=== PATIENT | male | born 1980 | race Caucasian/White ===

== ENCOUNTER → 2021-10-21 00:35 | Outpatient (CLI) | payer OTHER, SELFPAY ==
[2021-10-21 20:10] LABS: SARS-CoV-2 RNA PCR Negative
== END ==
PROVIDERS: PCP Internal Medicine; Visit Provider Nurse Practitioner
DX: Z20.828 Contact with and (suspected) exposure to other viral communicable diseases (principal)
CPT/HCPCS: C9803; U0003; U0005

== ENCOUNTER 2022-01-30 00:15 | Day surgery (SDC) | payer OTHER, SELFPAY ==
[2022-01-18 14:07] VITALS: BMI 27.4
[2022-01-30] VITALS (10 sets, daily range): BP systolic 97–121; BP diastolic 62–83; PULSE 56–77; RESP 13–20; TEMP 37.2; O2SAT 95–100; BMI 26.4
[2022-01-30] MEDS: LACTATED RINGERS 1,000 ML 150 ML IV CONT ×2 (09:56→11:08)
[2022-01-30 10:10] LABS: Glucose Point of Care 127 mg/dl (65-105)
--- NOTE | 2022-01-30 10:41 | WPDANESEPPF ---
Anes - Initial Pre Proc Eval Procedure: Operation Date: 01/30/22 11:00 Proposed Procedures p Screening Colonoscopy - Solis Dietrich MD Date/Time: 01/30/22 10:41 Surgeon: Solis Dietrich MD Pre Op Diagnosis: hx of colon polyps Patient Data Age: 41 Gender: M Height: 1.93 m Weight: 98.7 kg Last Vital Signs Temp 37.2 C 01/30/22 09:38 Pulse 56 L 01/30/22 10:20 Resp 20 01/30/22 10:20 BP 101/68 01/30/22 10:20 Pulse Ox 95 01/30/22 10:20 Allergies Allergy/AdvReac Type Severity Reaction Status Date / Time codeine Allergy Mild Childhood Verified 01/30/22 09:47 allergy hydrocodone Allergy Mild Constipated Verified 01/30/22 09:47 pseudoephedrine Allergy Mild Unknown Verified 01/30/22 09:47 triprolidine Allergy Mild Unknown Verified 01/30/22 09:47 azithromycin Allergy Unknown Vomiting Verified 01/30/22 09:47 hydroxyzine AdvReac Mild disoriented Verified 01/30/22 09:47 Home Medications Medication Instructions Recorded Confirmed Type hydrochlorothiazide 12.5 mg tablet 12.5 mg PO DAILY #90 tablet 01/17/22 01/30/22 Rx losartan 100 mg tablet 100 mg PO DAILY #90 tablet 01/17/22 01/30/22 Rx Laboratory Tests 01/30/22 10:06 POC Capillary Glucose 127 mg/dl H mg/dl (65-105) Patient hx anesthesia problems: none Family hx anesthesia problems: none Results Review: All pre-operative results and documents have been reviewed as part of the pre-operative evaluation. [facility] Past Medical History Medical History Allergies Anxiety Depression Hypertension Prediabetes Surgical defect of lip 1983 Surgical History Surgical History H/O hernia repair 1984 H/O vasectomy 2018 History of appendectomy 2009 S/P surgery on nasal septum 2012 Family History Family History Father Hypertension Malignant neoplasm of prostate Mother Family history of hypothyroidism Hypotension Allergies Social History Social History Smoking status: Never smoker Alcohol intake: current Drinks per week: 3 Alcohol use details: Pt drinks socially. Substance use: never Substance use type: does not use Living arrangements: with family Spiritual care concerns: No Anes - Eval Final PreProcedure Day of Procedure 01/30/22 10:41 Patient weight: overweight Heart: regular rate and rhythm Lungs: clear to auscultation Airway: Mallampati scale class II Neurological: alert and oriented Last oral intake: >/= 8 hours ASA classification: II Emergent: no Anesthetic plan: proceed Anesthesia type and monitoring: general GIVS and standard monitoring Results Review: All pre-operative results and documents have been reviewed as part of the pre-operative evaluation. Informed Consent: The patient's anesthetic plan and its attendant risks and benefits were discussed with the patient/family/POA. Questions were solicited and answers provided to the satisfaction of the patient/family/POA.
--- NOTE | 2022-01-30 10:47 | SUR.PREOP ---
0955- Started pt's IV 0958- Pt pushed call light. Stated he wasn't feeling well then passed out for a few seconds. Pt was pale and diaphoretic. IV bolus started. Pt place in trendelenburg. 1000- BP 110-71, HR 56, O2Sat 100% RA. Pt states he takes BP meds, but did not take any this morning. states that the pt took his BP prior to starting the prep yesterday and said it was 120's/80s. Pt's BP upon arrival today was 121/76, HR 77, O2Sat 99% RA. 1008- BP 102/66, HR 58 1020- BP 101/68, HR 56
--- NOTE | 2022-01-30 11:08 | PM.HPGS ---
History of Present Illness History of Present Illness Consent: Risks, benefits, and alternatives have been discussed and questions answered. Patient agrees to proceed with procedure. Chief complaint: hx of colon polyps Narrative: Glenroy Ledesma is a 41 year old male here for screening colonoscopy, had one about 20 years ago and thinks that had polyp. Review of Systems Constitutional: Constitutional: Denies headache(s) and Denies weakness Eyes: Eyes: Denies blurry vision ENT: Reports Normal hearing present, Denies headache(s) and Denies neck pain Cardiovascular: Cardiovascular: Denies chest pain and Denies dyspnea Respiratory: Respiratory: Denies dyspnea Gastrointestinal: Gastrointestinal: Reports no additional gastrointestinal complaints Genitourinary: Genitourinary: Denies dysuria Musculoskeletal: Musculoskeletal: Denies neck pain Integumentary/Breasts: Skin/Breast: Denies dry skin Neurologic: Reports Normal hearing present, Denies headache(s) and Denies weakness Psychiatric: Psychiatric: Denies anxiety Endocrine: Endocrine: Denies change in body appearance Hematologic/Lymphatic: Hematologic/Lymphatic: Denies easy bleeding Allergic/Immunologic: Allergic/Immunologic: Denies urticaria PMFSH Past Medical History Medical History (Updated 01/30/22 @ 11:08 by Solis Dietrich MD) Allergies Anxiety Colon cancer screening Depression Hypertension Prediabetes Surgical defect of lip 1983 Surgical History Surgical History H/O hernia repair 1984 H/O vasectomy 2018 History of appendectomy 2009 S/P surgery on nasal septum 2012 Family History Family History Father Hypertension Malignant neoplasm of prostate Mother Family history of hypothyroidism Hypotension Allergies Social History Social History Smoking status: Never smoker Alcohol intake: current Drinks per week: 3 Alcohol use details: Pt drinks socially. Substance use: never Substance use type: does not use Living arrangements: with family Spiritual care concerns: No Meds Home Medications and Allergies Home Medications Medication Instructions Recorded Confirmed Type hydrochlorothiazide 12.5 mg tablet 12.5 mg PO DAILY #90 tablet 01/17/22 01/30/22 Rx losartan 100 mg tablet 100 mg PO DAILY #90 tablet 01/17/22 01/30/22 Rx Allergies Allergy/AdvReac Type Severity Reaction Status Date / Time codeine Allergy Mild Childhood Verified 01/30/22 09:47 allergy hydrocodone Allergy Mild Constipated Verified 01/30/22 09:47 pseudoephedrine Allergy Mild Unknown Verified 01/30/22 09:47 triprolidine Allergy Mild Unknown Verified 01/30/22 09:47 azithromycin Allergy Unknown Vomiting Verified 01/30/22 09:47 hydroxyzine AdvReac Mild disoriented Verified 01/30/22 09:47 Vital Signs Vital Signs - 24 hr 01/30/22 09:38 01/30/22 10:00 01/30/22 10:08 Temperature 98.9 F Pulse Rate 77 56 L 58 L Respiratory Rate 18 Blood Pressure 121/76 110/71 102/66 Pulse Oximetry 99 100 100 01/30/22 10:20 Temperature Pulse Rate 56 L Respiratory Rate 20 Blood Pressure 101/68 Pulse Oximetry 95 Exam Const: General: comfortable and no acute distress HENMT: General nose exam: Normal nares present Eyes: General: appearance normal, both eyes and all related structures Neck: Neck: no JVD Resp: Auscultation: clear to auscultation bilaterally Cardio: Rate: regular rate Rhythm: regular rhythm GI: Inspection: non-distended GI Palp: Yes Soft to palpation Skin: General skin exam: normal color Neuro: General: gait normal Speech: normal speech Extrem: General: normal to inspection Psych: Mental Status: mental status grossly normal Assessment and Plan Assessment and plan (1) Colon cancer screening: Code(s):
== END 2022-01-30 12:00 | disposition home or self-care (01) ==
PROVIDERS: PCP Internal Medicine; Visit Provider Internal Medicine Gastroenterology
PROC: 0DJD8ZZ Inspection of Lower Intestinal Tract, Via Natural or Artificial Opening Endoscopic (ICD-10-PCS; CPT 45378; principal; 2022-01-30 11:00)
DX: Z12.11 Encounter for screening for malignant neoplasm of colon (principal); K64.8 Other hemorrhoids; F41.8 Other specified anxiety disorders; I10 Essential (primary) hypertension; R73.03 Prediabetes
CPT/HCPCS: 45378; 82948; J2704; J7120

== ENCOUNTER → 2022-03-26 13:48 | Outpatient (CLI) | payer OTHER, SELFPAY ==
--- NOTE | ~2022-03-26 | US_ITS ---
EXAMINATION: US soft tissue UE LT DATE: 03/26/2022 14:11 INDICATION: Left hand second digit mass. TECHNIQUE: Multiple grayscale and Doppler ultrasound images of the left hand second digit were obtain ed. COMPARISON: None FINDINGS: In the left hand second digit, there is a 5 mm hypoechoic mass abutting the flexor tendon s michelle at the level of the proximal phalanx. IMPRESSION: 1. 5 mm hypoechoic mass abutting the flexor tendon sheath at the level of the second proximal phalanx . The differential diagnosis includes ganglion cyst and tenosynovial giant cell tumor. Reviewed, dictated and finalized at location B. IMPRESSION: 1. 5 mm hypoechoic mass abutting the flexor tendon sheath at the level of the s econd proximal phalanx. The differential diagnosis includes ganglion cyst and t enosynovial giant cell tumor.
== END ==
PROVIDERS: PCP Internal Medicine; Visit Provider Nurse Practitioner
DX: R22.32 Localized swelling, mass and lump, left upper limb (principal)
CPT/HCPCS: 76882

== ENCOUNTER → 2022-06-22 11:25 | Outpatient (CLI) | payer OTHER, SELFPAY ==
--- NOTE | ~2022-06-22 | XR_ITS ---
XR shoulder RT min 2V DATE: 06/22/2022 11:35 INDICATION: Right shoulder pain TECHNIQUE: 4 views COMPARISON: None FINDINGS: Normal alignment at the acromioclavicular and glenohumeral joints. No fracture or dislocati on, periosteal reaction or bone destruction or abnormal soft tissue calcification. IMPRESSION: Negative right shoulder Reviewed, dictated and finalized at location B. IMPRESSION: Negative right shoulder
== END ==
PROVIDERS: PCP Internal Medicine; Visit Provider Nurse Practitioner
DX: M25.511 Pain in right shoulder (principal)
CPT/HCPCS: 73030

== ENCOUNTER 2022-07-11 09:30 | Outpatient (RCR) | payer OTHER, SELFPAY ==
--- NOTE | 2022-06-06 16:23 | PTOPEVAL ---
PHYSICAL THERAPY INITIAL EVALUATION. Thank you for referring Glenroy Ledesma to [facility].? The patient is scheduled to be seen for therapy? 1x/week for 4 weeks. Please review, sign, date and return this plan of care JANE. I agree with and certify that the following plan of care is medically necessary. Referring Physician Date Attending Provider: Amy French NP *PT Outpatient Evaluation Start: 06/06/22 Evaluation Information Diagnosis R shoulder pain Onset 2-3 months Subjective Information Pt reports R shoulder pain Query Text:As Reported By Patient/ that stated a few months ago Family while playing whiffle ball, he threw the ball and instantly felt a searing pain from his shoulder down to his forearm. This searing pain happens any time he throws a ball and the pain last for a while after. He states he also feels this pain mildly when reaching overhead or far out in front of him but the pain stops as soon as he stops. He states he cannot sleep on his R side. 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 Hand Dominance Right Pain Assessment Right Shoulder(s) Reported Pain Level 0 Pain Description Burning,Dull,With Movement Pain Frequency Acute,Intermittent Lowest Pain Intensity 0 Greatest Pain Intensity 7 Upper Extremity Range of Motion Right Shoulder Flexion - Active 155 Shoulder Abduction - Active 160 Shoulder Medial Rotation - Active L5 Shoulder Lateral Rotation - Active T4 Scapular/Shoulder Range of Motion L shoulder active flexion 155 Comments L shoulder active [id number] L shoulder functional medial/ lateral rotation: T6, T4 Upper Extremity Muscle Strength Testing General Upper Extremity Strength Gross Upper Extremity Strength Comments L shoulder 5/5 throughout Scapular/Shoulder Right Scapular Protraction - Serratus 4+ Good + Shoulder Flexion Strength 4+ Good + Shoulder Abduction Strength 4 Good Shoulder Medial Rotation Strength 4+ Good + Shoulder Lateral Rotation Strength 4+ Good + Posture Scapula Posture (R) Protracted Palpation Assessment Palpation tender along lateral biceps Special Tests-Upper Extremity Empty Can (supraspinatus) Test Negative Left,Negative Right Drop Arm Test Negative Left,Negative Right Speed's Test Negative Left,Negative Right Lift Off Test
--- NOTE | 2022-07-06 15:23 | PTOPEVAL ---
PHYSICAL THERAPY PROGRESS REPORT. Thank you for referring Glenroy Ledesma to [facility].? The patient is scheduled to be seen for therapy? 1x/week for 4 weeks. Please review, sign, date and return this plan of care JANE. I agree with and certify that the following plan of care is medically necessary. Referring Physician Date Attending Provider: Amy French NP *PT Outpatient Evaluation Start: 06/06/22 Evaluation Information Diagnosis R shoulder pain Onset 2-3 months Subjective Information Pt states things have gotten a Query Text:As Reported By Patient/ little better but he is still Family having some difficulty. He states he can reach over his head, but when reaching out to the side he gets a pinching feeling intermittently. He states he has not attempted to play catch yet. He can sleep on his R side but he states it doesn't feel normal . He reports reaching behind his back every time. Pain Assessment Self Report Pain Assessment Right Shoulder(s) Reported Pain Level 1 Lowest Pain Intensity 0 Greatest Pain Intensity 5 Pain Aggravating Factors Lifting Upper Extremity Range of Motion Scapular/ Shoulder Range of Motion Right Shoulder Flexion - Active 155 Shoulder Abduction - Active 170 Shoulder Medial Rotation - Active L5 Shoulder Lateral Rotation - Active T4 Scapular/Shoulder Range of Motion R active abduction to 170 with Comments quicker motion, when motion is slow and controlled pt stops at 115 d/t pain L shoulder active flexion 155 L shoulder active abduction 180 L shoulder functional medial/ lateral rotation: T6, T4 Upper Extremity Muscle Strength Testing Gross Upper Extremity Strength Comments L shoulder 5/5 throughout Scapular/Shoulder Right Scapular Protraction - Serratus 5 Normal Shoulder Flexion Strength 5 Normal Shoulder Abduction Strength 5 Normal Shoulder Medial Rotation Strength 5 Normal Shoulder Lateral Rotation Strength 5 Normal Posture Scapula Posture (R) Protracted Palpation Assessment Palpation Palpation tender along insertion of deltoid Special Tests-Upper Extremity Empty Can (supraspinatus) Test Negative Left,Negative Right Painful Arc Positive Right Drop Arm Test Negative Le
--- NOTE | 2022-07-17 14:00 | PCPTNOTE ---
Patient called to cancel appointment this date due to being sick.
--- NOTE | 2022-07-24 11:15 | PCPTNOTE ---
Patient called to cancel stating he is still sick.
--- NOTE | 2022-07-31 15:45 | PCPTNOTE ---
Patient called and cancelled his schedule re-evaluation this date. Per patient his MRI confirmed a slap tear and his referring provider would like his to stop therapy until he has followed up with an orthopedic doctor. His appointment is scheduled for 08/14/22, he plans to follow up with the clinic after then. He has not been rescheduled at this time.
--- NOTE | 2022-09-05 13:54 | PCPTNOTE ---
Attending Provider: Amy French NP Patient:Glenroy Ledesma Date of :1980 Called patient to follow up as he cancelled his re-evaluation on 07/24/22. He states they confirmed a SLAP tear on his MRI. His orthopedic surgeon would like him to complete therapy at a place that specializes in shoulders. He will be discharged at this time. Glenroy completed 4 visits of therapy from 06/06/22 to 07/11/22.
== END 2022-09-04 23:59 | disposition home or self-care (01) ==
LOC: ANHGOSHPT 09:30
PROVIDERS: PCP Internal Medicine; Visit Provider Nurse Practitioner
DX: R20.0 Anesthesia of skin (principal); R20.2 Paresthesia of skin; M25.511 Pain in right shoulder
CPT/HCPCS: 97035; 97110; 97112; 97140; 97161

== ENCOUNTER → 2022-07-25 16:36 | Outpatient (CLI) | payer OTHER, SELFPAY ==
--- NOTE | ~2022-07-25 | MR_ITS ---
EXAMINATION: MR shoulder RT wo con DATE: 07/25/2022 18:13 INDICATION: Right shoulder pain TECHNIQUE: Magnetic resonance imaging (MRI) of the right shoulder was performed without intravenous c ontrast. Sequences included axial PD-weighted FS FSE, coronal oblique PD-weighted FS FSE, coronal obl ique T2-weighted FS FSE, sagittal PD-weighted FS FSE, and sagittal T1-weighted SE. COMPARISON: None. FINDINGS: Coracoacromial arch: The acromion undersurface is curved in morphology (type II). The coracoacromial ligament is normal. M inimal acromioclavicular osteoarthritis. Rotator cuff: The supraspinatus, infraspinatus and teres minor tendons are normal. The subscapularis tendon is norm al. Normal rotator cuff muscle bulk and signal. Biceps tendon, glenoid labrum and glenohumeral cartilage: Long head of the biceps tendon is normal. There is a tear of the posterior to superior glenoid labrum extending from the 11:30 position to the 8:00 position. The tear occurs along the peripheral margin of a posterior glenoid marginal osteophytes which extends to the base of the posterior labrum. Glenoh umeral cartilage is normal. Fluid: Physiologic amount of fluid in the glenohumeral joint and biceps tendon sheath. No loose osteochondr al bodies. No abnormal fluid signal in the subacromial/subdeltoid bursa to suggest bursitis. Bones: Normal marrow signal with no edema, fracture or abnormal marrow replacing process. IMPRESSION: 1. SLAP tear at the posterior to superior glenoid labrum. 2. 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 Reviewed, dictated and finalized at location A.
== END ==
PROVIDERS: PCP Internal Medicine; Visit Provider Clinical Nurse Specialist
DX: M19.011 Primary osteoarthritis, right shoulder (principal); S43.431A Superior glenoid labrum lesion of right shoulder, initial encounter
CPT/HCPCS: 73221

== ENCOUNTER → 2022-10-15 13:46 | Outpatient (CLI) | payer OTHER, SELFPAY ==
--- NOTE | ~2022-10-15 | MR_ITS ---
EXAMINATION: MR brain/brain stem wo/w con DATE: 10/15/2022 14:26 INDICATION: Headaches. TECHNIQUE: Magnetic resonance imaging (MRI) of the brain and brainstem was performed without and with 20 cc MultiHance intravenous contrast. Sequences included sagittal and axial T1-weighted SE, axial diffusion-weighted FS SE, axial T2*-weighted GRE, axial T2-weighted FLAIR Propeller, and axial T2-herlinda ghted Propeller. Apparent diffusion coefficient (ADC) maps were created. COMPARISON: MRI dated 07/08/2018 FINDINGS: No acute infarction or hemorrhage. Brain parenchymal volume is normal for age. No ventricul omegaly or midline shift. There is mucosal thickening of the left maxillary, ethmoid and left frontal sinuses. Orbits are symmetric without disconjugate gaze. Structures of the posterior fossa including 7/8th cranial nerve complexes are normal. No ventriculomegaly or midline shift. No abnormal contrast enhancement. Midline sagittal images demonstrate a normal corpus callosum and craniovertebral juncti on. There is focal increased signal on FLAIR sequence in the left frontal lobe adjacent to the fronta l horn of the lateral ventricle, nonspecific. IMPRESSION: 1. No acute intracranial abnormality. 2: Moderate sinus disease. 3: Nonspecific increased focal FLAIR weighted signal in the left periventricular white matter. Reviewed, dictated and finalized at location A. GER CAMP IMPRESSION: 1. No acute intracranial abnormality. 2: Moderate sinus disease. 3: Nonspecific increased focal FLAIR weighted signal in the left periventricula r white matter.
== END ==
PROVIDERS: PCP Internal Medicine; Visit Provider Clinical Nurse Specialist
DX: R51.9 Headache, unspecified (principal); J32.9 Chronic sinusitis, unspecified
CPT/HCPCS: 70553; A9577

== ENCOUNTER 2023-01-21 08:47 | Emergency (ER) | payer OTHER, SELFPAY ==
--- NOTE | 2023-01-21 08:57 | ED.EYEPROB ---
HPI - Eye Problem General Chief complaint: Eye Problems Stated complaint: lt eye swelling/irritation Source: patient and RN notes reviewed History of Present Illness HPI Narrative: 42-year-old male presents to urgent care with complaints of left upper eyelid swelling that started yesterday. Patient reports burning to his left eye. Denies any drainage or significant visual disturbance. Patient does not wear contacts. Some parts of this dictation were generated by voice recognition software and may contain typographical and/or grammatical inaccuracies. Related Data Home Medications Medication Instructions Recorded Confirmed multivitamin 1 tablet PO DAILY 03/21/22 01/21/23 fluticasone propionate 50 50 mcg intranasal DAILY 01/21/23 01/21/23 mcg/actuation nasal spray,suspension Allergies Allergy/AdvReac Type Severity Reaction Status Date / Time codeine Allergy Mild Childhood Verified 01/21/23 08:56 allergy hydrocodone Allergy Mild Constipated Verified 01/21/23 08:56 pseudoephedrine Allergy Mild Unknown Verified 01/21/23 08:56 triprolidine Allergy Mild Unknown Verified 01/21/23 08:56 azithromycin Allergy Unknown Vomiting Verified 01/21/23 08:56 hydroxyzine AdvReac Mild disoriented Verified 01/21/23 08:56 Review of Systems Review of Systems: CONSTITUTIONAL: Denies fever, chills, or sweats. EYES: Left upper eyelid swelling ENT: Denies otalgia and sore throat CARDIOVASCULAR: Denies chest pain, palpitations, or edema. RESPIRATORY: Denies cough or dyspnea. GASTROINTESTINAL: Denies abdominal pain, nausea, vomiting, or diarrhea. GENITOURINARY: Denies dysuria or hematuria. SKIN: Denies rash or itching. MUSCULOSKELETAL: Denies back pain, joint pain, or myalgia. NEUROLOGIC: Denies headache, numbness, or weakness. [facility] Past Medical History Medical History Allergies Anxiety Colon cancer screening Depression Hypertension Prediabetes Surgical defect of lip 1983 Surgical History Surgical History H/O hernia repair 1984 H/O vasectomy 2018 History of appendectomy 2009 S/P surgery on nasal septum 2012 Family History Family History Father Hypertension Malignant neoplasm of prostate Mother Family history of hypothyroidism Hypotension Allergies Social History Social History Smoking status: Never smoker Alcohol intake: current Drinks per week: 3 Alcohol use details: Pt drinks socially. Substance use: never Substance use type: does not use Living arrangements: with family Spiritual care concerns: No Comments At the time of my signature, I reviewed and agree with the nursing past medical, surgical, social, and family history. There is no relevant family history pertinent to the patient complaint. Exam Narrative: GENERAL: This is a well-nourished, well-developed patient, in no apparent distress. HEAD: normocephalic, atraumatic. EYES: PERRL. Sclera clear/white. Vision is grossly intact. Left upper eyelid edematous. No drainage. EARS: External ears normal, auditory canals clear and without drainage, TMs normal without perforation. Hearing grossly intact. NOSE: External nose normal with no obvious nasal discharge, nares without redness, no rhinorrhea. THROAT: Mucous membranes moist, posterior pharynx clear. NECK: Neck supple, non-tender without lymphadenopathy, masses or thyromegaly. CARDIOVASCULAR: Regular rate RESPIRATORY: No respiratory distress. GASTROINTESTINAL: Abdomen soft, non-tender, nondistended. Bowel sounds are active. No hepato-splenomegaly, or palpable masses. No guarding. SKIN: warm, intact with no suspicious lesions or rash, good texture and turgor. NEURO: awake, alert, and oriented to person, place and time. There were no obvious focal shaw
[2023-01-21 08:59] VITALS: BP 139/80; PULSE 86; RESP 12; TEMP 36.5; O2SAT 100
== END 2023-01-21 09:13 | disposition home or self-care (01) ==
PROVIDERS: Emergency Provider Nurse Practitioner Family; PCP Internal Medicine
DX: H01.004 Unspecified blepharitis left upper eyelid (principal); I10 Essential (primary) hypertension; R73.03 Prediabetes
CPT/HCPCS: 99213; G0463

== ENCOUNTER 2023-10-01 08:49 | Outpatient (CLI) | payer OTHER, SELFPAY ==
[2023-10-01 19:51] LABS: Basophils Absolute Auto 0.1 K/mm3 (0.0-0.1); Basophils Percent Auto 1.3 % (0.2-1.2); Eosinophils Absolute Auto 0.2 K/mm3 (0-0.3); Eosinophils Percent Auto 4.9 % (0-4.4); Hematocrit 47.3 % (42.0-52.0); Hemoglobin 15.6 g/dL (14.0-18.0); Immature Granulocyte Absolute 0.01 K/mm3 (0.00-0.031); Immature Granulocyte Percent A 0.2 % (0-0.5); Lymphocytes Absolute Auto 1.52 K/mm3 (0.9-3.2); Lymphocytes Percent Auto 33.9 % (18.3-44.2); Mean Corpuscular Hemoglobin 29.8 pg (26-34); Mean Corpuscular Volume 90.3 fl (80-100); Mean Platelet Volume 9.9 fl (7.4-10.4); Monocytes Absolute Auto 0.4 K/mm3 (0.1-0.6); Monocytes Percent Auto 8.7 % (2.6-8.5); Neutrophils Absolute Auto 2.3 K/mm3 (1.3-6.7); Platelet Count Result 248 k/mm3 (150-375); Red Blood Count 5.24 M/mm3 (4.6-6.20); Red Cell Distribution Width 12.7 % (11.5-14.5); White Blood Count 4.5 K/mm3 (4.5-10.0)
[2023-10-01 21:26] LABS: Alanine Aminotransferase 38 U/L (6-50); Albumin Level 4.7 g/dL (3.5-5.1); Alkaline Phosphatase 69 U/L (38-126); Anion Gap 12 mmol/L (8-16); Aspartate Amino Transferase 33 U/L (17-59); Bilirubin,Total 0.6 mg/dL (0.2-1.3); Blood Urea Nitrogen 13 mg/dL (9-20); Calcium 9.9 mg/dL (8.4-10.2); Carbon Dioxide 31 mmol/L (22-30); Chloride 101 mmol/L (98-107); Cholesterol 150 mg/dL (0-200); Estimated Glomerular Filt Rate > 60; Glucose 109 mg/dL (65-110); HDL Direct 39 mg/dL; Potassium 4.4 mmol/L (3.4-5.0); Sodium 144 mmol/L (137-145); Triglycerides 76 mg/dL (<150)
[2023-10-01 21:38] LABS: LDL Cholesterol Direct 92 mg/dL
[2023-10-05 15:41] LABS: Vitamin D 1,25 (OH)2 Total 27 pg/mL (18-72); Vitamin D2 1,25 (OH)2 <8 pg/mL; Vitamin D3 1,25 (OH)2 27 pg/mL
[2023-10-05 19:38] LABS: Testosterone Free 93.9 pg/mL (35.0-155.0); Testosterone Total 546 ng/dL (250-1100)
== END 2023-10-01 08:50 | disposition home or self-care (01) ==
LOC: ANHGOSHLAB 08:50
PROVIDERS: PCP Internal Medicine; Visit Provider Nurse Practitioner Family
DX: E55.9 Vitamin D deficiency, unspecified (principal); I10 Essential (primary) hypertension; R53.83 Other fatigue
CPT/HCPCS: 36415; 80053; 80061; 82607; 82652; 84402; 84403; 84443; 85025

== ENCOUNTER 2023-10-08 14:19 | Outpatient (CLI) | payer OTHER, SELFPAY ==
[2023-10-08 19:14] LABS: Erythrocyte Sedimentation Rate 6 mm/hr (0-20)
== END 2023-10-08 14:20 | disposition home or self-care (01) ==
LOC: ANHGOSHLAB 14:20
PROVIDERS: PCP Internal Medicine; Visit Provider Internal Medicine
DX: R53.83 Other fatigue (principal); M79.10 Myalgia, unspecified site
CPT/HCPCS: 36415; 85652

== ENCOUNTER 2023-11-12 08:44 | Outpatient (CLI) | payer OTHER, SELFPAY ==
--- NOTE | 2023-11-25 17:10 | WPDHOMESLEEP ---
Sleep Study - Home Unattended Date of Study: 11/12/23 Ordering Provider: Adrian Brink DO Interpreting Provider: Chelsey Rodriguez DO Home Sleep Study Type: Watch PAT Height: 1.93 m Weight: 104.326 kg Body Mass Index: 28.0 Neck Circumference (inches): 15 [place]: 5 Reason for Sleep Study Daytime fatigue Sleep History The patient is a 43-year-old male with hypertension and seasonal allergies that had a sleep study ordered by his primary care physician for evaluation of sleep apnea. The patient denies awakening from sleep short of breath. He denies awakening at night with heartburn, belching or cough. He occasionally snores but it is rarely loud enough that others complain. He occasionally has trouble sleeping when he has a cold. He denies waking up gasping for air throughout the night. He denies having breathing problems at night observed by himself or others. He denies sweating excessively at night. He denies having heart palpitations or irregular heartbeats during the night. He denies falling asleep during the day and while driving. He denies sleep paralysis and cataplexy. He denies having trouble at school or work due to sleepiness. He occasionally experiences vivid dreamlike scenes upon awakening or falling asleep. He denies feeling afraid of going to sleep. He frequently has nightmares. He rarely remembers his dreams. He occasionally has thoughts racing through his mind. He rarely feels sad or depressed. He occasionally has anxiety. He rarely has muscular tension. He rarely notices parts of his body jerk. He denies kicking during the night. He rarely has crawling and aching feelings in his legs and occasionally has leg pain during the night. He rarely grinds his teeth during sleep and rarely awakens with morning jaw pain. He is occasionally bothered by pain during the day but rarely awakened by pain during the night. He frequently wakes up feeling stiff in the morning. He occasionally wakes up with sore or achy muscles. He frequently wakes up with pain in the neck, spine and other joints. He goes to bed at 9:30 p.m. on weekdays and at 10:00 p.m. on the weekends. It takes him 5-15 minutes to fall asleep. He wakes up 2-3 times throughout the night to change position and is able to fall back asleep within a few minutes. He wakes up at 5:00 a.m. on both weekdays and weekends. He typically gets 7 hours of sleep per night. He will stay in bed for 1 hour after waking up in the morning. He currently lives with his and 2 children. He denies consuming any caffeinated beverages within 2 hours of bedtime. He will occasionally walk before bedtime. He will watch television before falling asleep. He denies taking naps in the afternoon or the evening. He denies consuming caffeinated beverages throughout the day. He will consume 3 alcoholic beverages per week. He denies tobacco and recreational drug use. [facility] Past Medical History Medical History Allergies Anxiety Callus of toe Colon cancer screening Cyst of hand Depression Difficulty speaking Hospital discharge follow-up Hypertension Left elbow pain Localized swelling, mass and lump, unspecified Muscle ache Prediabetes Screening for lipid disorders SLAP tear of shoulder Surgical defect of lip 1983 Surgical History Surgical History H/O hernia repair 1984 H/O vasectomy 2018 History of appendectomy 2008 S/P surgery on nasal septum 2012 Family History Family History Father Hypertension Malignant neoplasm of prostate Mother Family history of hypothyroidism Hypotension Allergies Social History Social History Smoking status: Never smoker Alcohol intake: current Drinks per week: 3 Alcohol use details
[2023-11-25 17:19] VITALS: BMI 28.0
== END 2023-11-13 07:30 | disposition home or self-care (01) ==
LOC: ANHCSM 09:12
PROVIDERS: PCP Internal Medicine; Visit Provider Internal Medicine
DX: G47.19 Other hypersomnia (principal); R06.83 Snoring
CPT/HCPCS: 95800

== ENCOUNTER 2024-02-28 09:50 | Emergency (ER) | payer OTHER, SELFPAY ==
--- NOTE | ~2024-02-28 | XR_ITS ---
XR abdomen obstructive series 02/28/2024 10:55 Indication: Abdominal pain. Procedure: Supine and upright views of the abdomen Comparison: No prior studies for comparison. Findings: Bowel pattern is nonobstructive. There is a cluster of amorphous calcifications in the righ t mid abdomen of uncertain etiology. Consider correlation with CT. No acute osseous abnormality. Impression: 1: Clustered amorphous calcifications right mid abdomen. Consider correlation with CT. Reviewed, dictated and finalized at location B. Impression: 1: Clustered amorphous calcifications right mid abdomen. Consider correlation w ith CT.
--- NOTE | 2024-02-28 09:52 | ED.NAVMDI ---
HPI - Nausea/Vomiting/Diarrhea General Stated complaint: Stomach Irritation Time Seen by Provider: 02/28/24 09:51 Source: patient Mode of arrival: ambulatory Limitations: no limitations Related Data Home Medications Medication Instructions Recorded Confirmed multivitamin 1 tablet PO DAILY 03/21/22 01/06/24 fluticasone propionate 50 50 mcg intranasal DAILY PRN 08/23/23 01/06/24 mcg/actuation nasal spray,suspension vitamin B12 500 mcg-folic acid 400 1 tablet PO DAILY 10/08/23 01/06/24 mcg tablet Allergies Allergy/AdvReac Type Severity Reaction Status Date / Time codeine Allergy Mild Childhood Verified 01/06/24 13:04 allergy hydrocodone Allergy Mild Constipated Verified 01/06/24 13:04 pseudoephedrine Allergy Mild Unknown Verified 01/06/24 13:04 triprolidine Allergy Mild Unknown Verified 01/06/24 13:04 azithromycin Allergy Unknown Vomiting Verified 01/06/24 13:04 hydroxyzine AdvReac Mild disoriented Verified 01/06/24 13:04 [facility] Past Medical History Medical History Allergies Anxiety Callus of toe Colon cancer screening Cyst of hand Depression Difficulty speaking Hospital discharge follow-up Hypertension Left elbow pain Localized swelling, mass and lump, unspecified Muscle ache Prediabetes Screening for lipid disorders SLAP tear of shoulder Surgical defect of lip 1983 Surgical History Surgical History H/O hernia repair 1984 H/O vasectomy 2018 History of appendectomy 2009 S/P surgery on nasal septum 2012 Family History Family History Father Hypertension Malignant neoplasm of prostate Mother Family history of hypothyroidism Hypotension Allergies Social History Social History (Updated 01/06/24 @ 13:07 by Giana Gore CMA) Smoking status: Never smoker Alcohol intake: current Drinks per week: 3 Alcohol use details: Pt drinks socially. Substance use: never Substance use type: does not use Do You Feel Safe in your Home?: Yes Lack of Transportation: No Lack of Food: Never True Current Housing: I Have Housing Concerned About Future Housing: No Difficulty Paying Gas/Electric Bills: No Difficulty Paying for Meds: No Currently Unemployed: No Education: Master's Degree or Higher Difficulty w/ Childcare or Family Care: No Living arrangements: with family Spiritual care concerns: No Comments At the time of my signature, I reviewed and agree with the nursing past medical, surgical, social, and family history. There is no relevant family history pertinent to the patient complaint. Course Course Emergency Course: Portions of this record may have been created with voice recognition software. Level of Care: Express Care Visit Vital Signs Vital signs: Vital signs reviewed Discharge Plan Discharge Prescriptions: No Action fluticasone propionate 50 mcg/actuation spray,suspension 50 mcg INTRANASAL DAILY PRN multivitamin Tablet 1 tablet PO DAILY vitamin [id number] acid 500-400 mcg tablet 1 tablet PO DAILY Rx Instructions: administer with a meal losartan 100 mg tablet 100 mg PO DAILY Qty: 90 3RF hydrochlorothiazide 12.5 mg tablet 12.5 mg PO DAILY Qty: 90 3RF Follow-up/Referrals: Adrian Brink DO [Primary Care Provider] - Quality NIHSS Nursing Documentation ED NIHSS nursing documentation: reviewed/agree
--- NOTE | 2024-02-28 10:03 | ED.ABDPAIN ---
HPI - Abdominal Pain General Chief Complaint: Abdominal Pain Stated Complaint: Stomach Irritation Time Seen by Provider: 02/28/24 09:51 Source: patient Mode of arrival: ambulatory Limitations: no limitations History of Present Illness HPI narrative: [place] is a 43-year-old male patient presenting to the clinic today with complaints upper abdominal discomfort. Reports he felt this way when he was trying to pass a kidney stone before. States he feels bloated/feeling pressure in the upper abdomen. Does have a history of acid reflux. Denies any nausea, vomiting, or diarrhea. Last bowel movement with this morning-states that was not his normal volume that he passes. Denies any fever, chills, or body aches. Denies any URI symptoms. Related Data Home Medications Medication Instructions Recorded Confirmed multivitamin 1 tablet PO DAILY 03/21/22 02/28/24 fluticasone propionate 50 50 mcg intranasal DAILY 08/23/23 02/28/24 mcg/actuation nasal spray,suspension vitamin B12 500 mcg-folic acid 400 1 tablet PO DAILY 10/08/23 02/28/24 mcg tablet Allergies Allergy/AdvReac Type Severity Reaction Status Date / Time codeine Allergy Mild Childhood Verified 02/28/24 10:11 allergy hydrocodone Allergy Mild Constipated Verified 02/28/24 10:11 pseudoephedrine Allergy Mild Unknown Verified 02/28/24 10:11 triprolidine Allergy Mild Unknown Verified 02/28/24 10:11 azithromycin Allergy Unknown Vomiting Verified 02/28/24 10:11 hydroxyzine AdvReac Mild disoriented Verified 02/28/24 10:11 Review of Systems Review of Systems: Pertinent positives per HPI. Patient denies any fever, chills, rash, headache, visual changes, dizziness, cough, runny nose, sore throat, shortness of breath, chest pain, palpitations, nausea, vomiting, diarrhea, constipation, or any urinary issues. [facility] Past Medical History Medical History Allergies Anxiety Callus of toe Colon cancer screening Cyst of hand Depression Difficulty speaking Hospital discharge follow-up Hypertension Left elbow pain Localized swelling, mass and lump, unspecified Muscle ache Prediabetes Screening for lipid disorders SLAP tear of shoulder Surgical defect of lip 1983 Surgical History Surgical History H/O hernia repair 1984 H/O vasectomy 2018 History of appendectomy 2008 S/P surgery on nasal septum 2012 Family History Family History Father Hypertension Malignant neoplasm of prostate Mother Family history of hypothyroidism Hypotension Allergies Social History Social History Smoking status: Never smoker Alcohol intake: current Drinks per week: 3 Alcohol use details: Pt drinks socially. Substance use: never Substance use type: does not use Do You Feel Safe in your Home?: Yes Lack of Transportation: No Lack of Food: Never True Current Housing: I Have Housing Concerned About Future Housing: No Difficulty Paying Gas/Electric Bills: No Difficulty Paying for Meds: No Currently Unemployed: No Education: Master's Degree or Higher Difficulty w/ Childcare or Family Care: No Living arrangements: with family Spiritual care concerns: No Comments At the time of my signature, I reviewed and agree with the nursing past medical, surgical, social, and family history. There is no relevant family history pertinent to the patient complaint. Exam Narrative: General: Well-developed, well nourished, in no apparent distress. Head: Normocephalic, atraumatic. Cardio: Regular rate and rhythm, s1 and s2 normal, no murmur appreciated. Resp: Clear to auscultation bilaterally, no rhonchi, rales, wheezing or rubs. Abdomen: Soft, pliable, bowel sounds present in all quadrants,bloating discomfort to
[2024-02-28 10:19] VITALS: BP 127/98; PULSE 66; RESP 16; TEMP 36.7; O2SAT 99
== END 2024-02-28 11:25 | disposition home or self-care (01) ==
PROVIDERS: Emergency Provider Nurse Practitioner Family; PCP Internal Medicine
DX: R10.11 Right upper quadrant pain (principal); R10.12 Left upper quadrant pain; R93.5 Abnormal findings on diagnostic imaging of other abdominal regions, including retroperitoneum; Z87.442 Personal history of urinary calculi; I10 Essential (primary) hypertension; R73.03 Prediabetes
CPT/HCPCS: 74019; 81003; 99213; G0463

== ENCOUNTER 2024-03-06 15:11 | Outpatient (CLI) | payer OTHER, SELFPAY ==
--- NOTE | ~2024-03-06 | CT_ITS ---
EXAMINATION: CT abdomen pelvis w con DATE: 03/06/2024 15:38 INDICATION: Unspecified abdominal pain TECHNIQUE: Computed tomography (CT) of the abdomen and pelvis was performed with 100 mL Omnipaque-350 intravenous contrast. Automated exposure control and iterative reconstruction technique were employe d. The dose-length product was 1031.48 mGy-cm. COMPARISON: None FINDINGS: Lung bases are clear. Heart size is normal. No pericardial or pleural effusion. Liver, gallbladder, s pleen, pancreas, bilateral adrenal glands and kidneys are normal. The density seen on the prior radio graphs on 02/28/2024. Correlate to surgical clips or sutures at the tip the cecum likely related to pr ior appendectomy. Bowels are otherwise unremarkable. Bladder is normal. No free intraperitoneal gas o r fluid. No pathologically enlarged abdominal or pelvic lymphadenopathy. Mild thoracic and lumbar spo ndylosis with chronic appearing likely physiologic mild anterior wedging at T11-L1. IMPRESSION: 1. No acute intra-abdominal/pelvic process. Reviewed, dictated and finalized at location A.
[2024-03-06 15:29] LABS: Estimated Glomerular Filt Rate > 60
== END 2024-03-06 15:12 ==
LOC: MICIMG 15:12
PROVIDERS: PCP Nurse Practitioner; Visit Provider Nurse Practitioner
DX: R93.5 Abnormal findings on diagnostic imaging of other abdominal regions, including retroperitoneum (principal)
CPT/HCPCS: 74177; Q9967

== ENCOUNTER 2025-03-22 15:15 | Outpatient (CLI) | payer OTHER, SELFPAY ==
--- NOTE | ~2025-03-22 | CT_ITS ---
Non-contrast CT scan of the Abdomen and Pelvis Clinical indication: Abdominal pain Technique: 2.5 mm axial scans were obtained through the abdomen and pelvis without intravenous or or al contrast. Dose reduction technique was used on this scan by utilizing automated exposure control a nd iterative reconstruction technique. The dose-length product (DLP) was 957.94 mGy-cm. COMPARISON: 03/06/2024 Findings: Images through the lung bases reveal no abnormalities. There is no evidence of renal or ureteral calculi. The kidneys and the ureters are nondilated. The liver, spleen, pancreas, gallbladder, and adrenals appear normal. There is no aortic aneurysm. There is no evidence of bowel obstruction. Images through the pelvis were performed. There is no evidence of ascites or lymphadenopathy. Urinary bladder unremarkable. No pelvic mass seen. Impression: No significant abnormality seen. Reviewed, dictated and finalized at [facility]. Impression: No significant abnormality seen.
== END 2025-03-22 15:16 | disposition home or self-care (01) ==
LOC: MICIMG 15:16
PROVIDERS: PCP Internal Medicine; Visit Provider Student in an Organized Health Care Education/Training Program
DX: N50.812 Left testicular pain (principal); R10.9 Unspecified abdominal pain
CPT/HCPCS: 74176

== ENCOUNTER 2025-10-27 12:40 | Outpatient (CLI) | payer OTHER, SELFPAY ==
--- NOTE | ~2025-10-27 | US_ITS ---
EXAMINATION: US soft tissue groin LT, 10/27/2025 12:41 INFORMATION ASSURANCE HISTORY: R10.32 - Left lower quadrant pain Comparison: None Technique: Monroe-scale and color Doppler images were obtained. Findings: Correlating with the palpable area there is a small hernia containing bowel maximally measuring 2 x 2 cm with Valsalva. IMPRESSION: Small hernia detailed above. Correlation with CT in Valsalva is suggested Reviewed, dictated and finalized at location P. RMATION ASSURANCE IMPRESSION: Small hernia detailed above. Correlation with CT in Valsalva is sug gested
--- NOTE | ~2025-10-27 | US_ITS ---
EXAMINATION: US scrotum doppler, 10/27/2025 12:41 SLASHER TENDER HISTORY: R10.32 - Left lower quadrant pain Comparison: None Technique: Monroe-scale and color Doppler images were obtained of the testes with spectral analysis to document arterial and venous flow. Findings: Right Testicle:Right testicle 4.1 x 2.5 x 2.1 cm, normal parenchyma, normal flow. Right Epidiymis:Right epididymis subcentimeter cysts, no increased flow. Left Testicle: Left testicle 5.2 x 3.1 x 2.4 cm, normal parenchymal, normal flow. Left Epidiymis: Unremarkable. Normal flow. Hydrocele: None . Varicocele: None Scrotum: Unremarkable. No skin thickening. Impression: No acute abnormality. Reviewed, dictated and finalized at location P. HER TENDER Impression: No acute abnormality.
== END 2025-10-27 12:41 | disposition home or self-care (01) ==
LOC: GOSHIMG 12:41
PROVIDERS: PCP Clinical Nurse Specialist
DX: K40.90 Unilateral inguinal hernia, without obstruction or gangrene, not specified as recurrent (principal)
CPT/HCPCS: 76870; 76882; 93976